=== PATIENT | female | born 1990 | race African-American/Black ===

== ENCOUNTER 2017-08-19 10:02 | Emergency (ER) | payer BC, OTHER ==
[~2017-08-19] VITALS: Ht 175.3 cm; Wt 122.8 kg
[~2017-08-19 10:02] MED LIST: FLEXERIL10 MG PO; FLEXERIL5 MG PO; LANSOPRAZOLE30 MG PO; LORTAB 5-325 M1 EACH PO; NAPROSYN500 MG PO; NORCO 5/3251 TABLET PO; ORTHO TRI-CYCL1 EACH PO; PERCOCET 5/31 TABLET PO; PRILOSEC20 MG PO; PRILOSEC40 MG PO; SPIRONOLACTONE50 MG PO; SPRINTEC1 EACH PO
[2017-08-19 10:46] LABS: AMPHETAMINE NEGATIVE (500 ng/mL); BARBITURATES NEGATIVE (200 ng/mL); BENZODIAZEPINES NEGATIVE (150 ng/mL); BUPRENORPHINE NEGATIVE (10 ng/mL); COCAINE PRESUMPTIVE POSITIVE (150 ng/mL); METHADONE PRESUMPTIVE POSITIVE (200 ng/mL); METHAMPHETAMINE PRESUMPTIVE POSITIVE (500 ng/mL); OPIATES (MORPHINE) PRESUMPTIVE POSITIVE (100 ng/mL); OXYCODONE PRESUMPTIVE POSITIVE (100 ng/mL); PHENCYCLIDINE NEGATIVE (25 ng/mL); PROPOXYPHENE NEGATIVE (300 ng/mL); THC CANNABINOIDS PRESUMPTIVE POSITIVE (50 ng/mL); TRICYCLIC ANTIDEPRESSANTS NEGATIVE (300 ng/mL)
[2017-08-19 11:02] VITALS: BP 138/79
== END 2017-08-19 11:01 | disposition left against medical advice (07) ==
LOC: EME 10:02
DX: T65.91XA Toxic effect of unspecified substance, accidental (unintentional), initial encounter (principal); Z53.21 Procedure and treatment not carried out due to patient leaving prior to being seen by health care provider; E28.2 Polycystic ovarian syndrome
CPT/HCPCS: 84999; 99281; 99284; J2310